=== PATIENT | female | born 1985 | race Caucasian/White ===

== ENCOUNTER 2016-11-01 23:35 | Emergency (ER) | payer MEDICARE ==
[2016-11-02] MEDS ORDERED: ONDANSETRON HCL 4 MG/2 ML VIAL ONE (00:34)
[2016-11-02] MEDS ORDERED: LORazepam 2 MG/ML INJ ONE (00:35)
--- NOTE | 2016-11-02 01:24 | ER NURSING DOCUMENTATION ---
Nurse's Notes [facility] Name:Jennifer Zhang Age:31 yrs Sex:Female :1985 Arrival Date:11/01/2016 Time:23:35 Bed1 Private MD: Diagnosis:Anxiety Reaction;Nausea - Vomiting (not ) Presentation: 11/01 23:46 Presenting complaint: Patient states: nausea, left eye reddened, feels short of breath, lb face feels hot. Transition of care: patient was not received from another setting of care. Notified ED Physician of Dr. Cadet notified. 23:46 Acuity: SEMAJ 3 lb 23:46 Method Of Arrival: Walk In lb Triage Assessment: 23:48 General: Appears in no apparent distress, Behavior is appropriate for age, pleasant. lb Pain: Denies pain. GI: Reports nausea. Historical: - Allergies: No known drug Allergies; - Home Meds: 1. Plaquenil Oral 2. Fluoxetine Oral - PMHx: LUPUS; ANXIETY; - PSHx: None; - Tetanus: < 10 years. - Ebola Screening: : Patient denies exposure to infectious person. Patient denies travel to an Ebola-affected area in the 21 days before illness onset. . - Immunization history: Flu Vaccine < 1 year. - Social history: Smoking status: Patient uses tobacco products, current some day smoker. Patient uses alcohol only on a social basis. Patient/guardian denies using marijuana. Screenin:50 Infectious Disease Risk None. Abuse screen: Denies threats or abuse. Denies injuries lb from another. Nutritional screening: No deficits noted. Assessment: 23:49 See Triage Assessment done by same RN. GI: Abdomen is flat, Bowel sounds present X 4 lb quads. Vital Signs: 23:49 BP 126 / 80; Pulse 102; Resp 16; Temp 98.3; Pulse Ox 96% on R/A; Weight 67.13 kg; lb Height 5 ft. 3 in. (160.02 cm); Pain 0/10; 11/02 01:11 BP 107 / 75; Pulse 90; Resp 16; lb 01:23 BP 107 / 70; Pulse Ox 96% on R/A; Pain 0/10; lb 11/01 23:49 Body Mass Index 26.22 (67.13 kg, 160.02 cm) lb ED Course: 11/01 23:36 Patient arrived in ED. jt 23:37 Rosanna Herrera is Primary Nurse. lb 23:42 Moe Cadet MD is Attending Physician. tl1 23:47 Triage completed. lb 23:50 Valuables Remains with patient Patient has correct armband on for positive lb identification. Placed in gown. Bed in low position. Call light in reach. Administered Medications: 11/02 00:27 Drug: Zofran 4 mg; Route: IVP; Infused Over: 2 mins; Site: left antecubital; lb 01:12 Follow up: Response: Nausea is decreased lb 00:27 Drug: Ativan 0.5 mg; Route: IVP; Site: left antecubital; lb 01:12 Follow up: Response: Anxiety decreased lb 00:28 Drug: NS 0.9% 1000 ml; Route: IV; Rate: bolus; Site: left antecubital; lb 01:12 Follow up: IV Status: Completed infusion; IV Intake: 1000ml lb 01:12 Drug: Ativan 1 mg; Route: IVP; Site: left antecubital; lb 01:23 Follow up: Response: Anxiety decreased lb Intake: 01:12 IV: 1000ml; Total: 1000ml. lb Outcome: 01:15 Discharge ordered by . tl1 01:23 Discharged to home ambulatory. lb 01:23 Condition: stable 01:23 Discharge Assessment: Patient awake, alert and oriented x 3. No cognitive and/or functional deficits noted. Patient verbalized understanding of disposition instructions. 01:23 Instructed on discharge instructions, follow up and referral plans. no drinking with medication, no driving heavy equipment. 01:23 IV D/Tab 01:23 Patient left the ED. lb 12:42 Discharge F/U Call: Unable to reach: no answer rohith 11/03 09:44 Discharge F/U Call: Spoke with: patient. other: Name: pt states she is feeling much st better. pt has no questions or concerns. Signatures: Ness Estes RN RN st Abuso, Melanie, RN RN ma Leigh, Tom, MD MD tl1 Ana Hagan Lynda lb
--- NOTE | 2016-11-02 01:24 | ER PHYSICIAN DOCUMENTATION ---
Physician Documentation [facility] Name:Jennifer Zhang Age:31 yrs Sex:Female :1985 Arrival Date:11/01/2016 Time:23:35 Bed1 Private MD: Moe Sewell Disposition: 11/02 02:00 Chart complete. tl1 Disposition: 11/02/16 01:15 Discharged to Home/Self Care. Impression: Anxiety Reaction, Nausea - Vomiting (not ). - Condition is Good. - Discharge Instructions: NAUSEA VOMITING 6yAdult - VOMITING (6y-Adult), Anxiety - ANXIETY REACTION. - Prescriptions for Ativan 0.5 mg Oral - take 1 tablet by ORAL route every 8 hours As needed 1-2 tablets every 6-12 hours as needed for anxiety, insomnia.; 20 tablet. Zofran 4 mg Oral Tablet - take 1-2 tablet by ORAL route every 4-6 hours As needed; 10 tablet. - Medical Reconciliation form form. - Follow up: Private Physician; When: 4- 6 days; Reason: Recheck today's complaints, Continuance of care. - Problem is an ongoing problem. - Symptoms have improved. HPI: 11/01 23:42 This 31 yrs old Female presents to ER with complaints of Nausea/Vomiting. tl1 23:42 The patient presents to the emergency department with nausea, with vomiting. tl1 23:56 She arrived here today from [place]. She says she has a h/o SLE for which she takes tl1 plaquenil. She flew for the first time ever and was anxious about that. She has a h/o anxiety and depression and just started taking fluoxetine again about 10 days ago after stopping it on her own about 4 months ago. She says as soon as she got off the plane she noted her left eye was little injected. After driving up to [place], she noted some nausea and had several episodes of dry heaves. She felt short of breath. Denies cough, CP, RF for PE. She is anxious. She says she has had similar episodes of anxiety in the past and per her , has had to go to the ED for similar episodes in the past, every 6 months or so. She denies h/a. No f/c/s. No ST or cough. No diarrhea or urinary symptoms. Historical: - Allergies: No known drug Allergies; - Home Meds: 1. Plaquenil Oral 2. Fluoxetine Oral - PMHx: LUPUS; ANXIETY; - PSHx: None; - Tetanus: < 10 years. - Ebola Screening: : Patient denies exposure to infectious person. Patient denies travel to an Ebola-affected area in the 21 days before illness onset. . - Immunization history: Flu Vaccine < 1 year. - Social history: Smoking status: Patient uses tobacco products, current some day smoker. Patient uses alcohol only on a social basis. Patient/guardian denies using marijuana. ROS: 11/02 00:22 Eyes: Positive for redness, Negative for blurry vision, foreign body sensation, tl1 itching, pain, photophobia, vision loss. Respiratory: Positive for shortness of breath, Negative for cough, hemoptysis, wheezing. Abdomen/GI: Negative for abdominal pain, diarrhea, constipation, abdominal cramps, hematemesis, black/tarry stool, rectal bleeding. : Negative for urinary symptoms. Neuro: Negative for altered mental status, dizziness, headache, weakness. All other systems are negative. Exam: 00:23 Constitutional: The patient appears alert, awake, non-toxic, well developed, well tl1 hydrated, well groomed, well nourished, anxious. 00:23 Head/face: Exam is negative for acute changes. 00:23 Eyes: Periorbital structures: appear normal, Pupils: equal, round, and reactive to light and accomodation, dilated, bilaterally, right pupil is approximately 4 mm(s), left pupil is approximately 4 mm(s). 00:23 ENT: External ear(s): are unremarkable, Mouth: is normal, no acute changes, Lips: normal, Oral mucosa: pink and intact, moist, Tongue: is normal, Posterior pharynx: is normal. 00:23 Neck: ROM/movement: is normal, Lymph nodes: no appreciated lymphadenopathy. 00:23 Cardiovascular: Rate: normal, Rhythm: regular, Heart sounds: normal, Edema: is not appreciated, JVD: is not appreciated. 00:23 Respiratory: Respirations: normal, Breath sounds: are normal. 00:23 Abdomen/GI: Palpation: abdomen is soft and non-tender. 00:23 Back: CVA tenderness, is absent. 00:23 Musculoskeletal/extremity: Exam is negative for acute changes. 00:23 Skin: Exam negative for acute changes, rash. 00:23 Neuro: Orientation: is normal, Mentation: is normal, Cranial nerves: grossly normal, Motor: moves all fours. Vital Signs: 11/01 23:49 BP 126 / 80; Pulse 102; Resp 16; Temp 98.3; Pulse Ox 96% on R/A; Weight 67.13 kg; lb Height 5 ft. 3 in. (160.02 cm); Pain 0/10; 11/02 01:11 BP 107 / 75; Pulse 90; Resp 16; lb 01:23 BP 107 / 70; Pulse Ox 96% on R/A; Pain 0/10; lb 11/01 23:49 Body Mass Index 26.22 (67.13 kg, 160.02 cm) lb MDM: 11/01 23:42 Patient medically screened. tl1 11/02 00:25 Differential diagnosis: Nonspecific abd pain. Data reviewed: vital signs, nurses notes, tl1 and as a result, I will discharge patient. Counseling: I had a detailed discussion with the patient and/or guardian regarding: the historical points, exam findings, and any diagnostic results supporting the discharge/admit diagnosis, the need for outpatient follow up, to return to the emergency department if symptoms worsen or persist or if there are any questions or concerns that arise at home. Response to treatment: the patient's symptoms have markedly improved after treatment, and as a result, I will discharge patient. Special discussion: I discussed with the patient/guardian in detail that at this point there is no indication for admission to the hospital. It is understood, however, that if the symptoms persist or worsen the patient needs to return immediately for re-evaluation. I suspect this is almost all anxiety related, especially in light of the fact that she has had similar symptoms in the past. She has very minor left greater than right conjunctival hyperemia and may have an early conjunctivitis. I doubt PE. I think it is a little early for altitude illness. Doubt this is a flare of SLE given that she has no other symptoms of that such as rash, seizures, hematuria, joint pain, fever, chest pain, abdominal pain, etc.. ED course: She was treated with IVNS, ativan and zofran. She felt significantly better.. Dispensed Medications: 00:27 Drug: Zofran 4 mg; Route: IVP; Infused Over: 2 mins; Site: left antecubital; lb 01:12 Follow up: Response: Nausea is decreased lb 00:27 Drug: Ativan 0.5 mg; Route: IVP; Site: left antecubital; lb 01:12 Follow up: Response: Anxiety decreased lb 00:28 Drug: NS 0.9% 1000 ml; Route: IV; Rate: bolus; Site: left antecubital; lb 01:12 Follow up: IV Status: Completed infusion; IV Intake: 1000ml lb 01:12 Drug: Ativan 1 mg; Route: IVP; Site: left antecubital; lb 01:23 Follow up: Response: Anxiety decreased lb Signatures: Moe Cadet MD MD tl1 Rosanna Herrera lb
== END 2016-11-02 01:24 | disposition home or self-care (01) ==
LOC: ER 23:35
DX: F41.9 Anxiety disorder, unspecified (principal); R11.2 Nausea with vomiting, unspecified; H11.433 Conjunctival hyperemia, bilateral; R06.02 Shortness of breath; M32.9 Systemic lupus erythematosus, unspecified; Z79.899 Other long term (current) drug therapy
CPT/HCPCS: 96361; 96374; 96375; 96376; 99283; J2060; J2405